=== PATIENT | male | born 1975 | race Caucasian/White ===

== ENCOUNTER 2017-07-21 22:20 | Emergency (ER) | payer OTHER ==
[~2017-07-21] VITALS: Ht 177.8 cm; Wt 127.0 kg
[~2017-07-21 22:20] MED LIST: ALLOPURINOL 30300 M1 PO; AMBEREN; NORCO 5-325 TA1 EACH PO
[2017-07-21] MEDS ORDERED: ZOCOR20 MG (22:34)
[2017-07-21] MEDS ORDERED: OMEPRAZOLE20 M2 (22:34)
[2017-07-21 22:45] LABS: URINE BILIRUBIN NEGATIVE (Negative); URINE BLOOD NEGATIVE (Negative); URINE CLARITY CLEAR; URINE COLOR YELLOW; URINE GLUCOSE-RANDOM 1+ (Negative); URINE KETONES TRACE (Negative); URINE LEUKOCYTES-REFLEX NEGATIVE (Negative); URINE NITRITE-REFLEX NEGATIVE (Negative); URINE PROTEIN TRACE (Negative); URINE SPECIFIC GRAVITY >= 1.030 (1.005-1.030); URINE UROBILINOGEN 0.2 E.U./dl (0.2-1.0)
[2017-07-21 22:46] LABS: ABSOLUTE EOSINOPHILS 0.1 thou/uL (0.0-0.7); ABSOLUTE LYMPHOCYTES 2.7 thou/uL (0.8-5.3); ABSOLUTE MONOCYTES 0.4 thou/uL (0.0-1.2); BASOPHILS 0.5 %; EOSINOPHILS 1.6 %; HEMATOCRIT 47.6 % (42.0-52.0); HEMOGLOBIN 16.2 gm/dL (14.0-18.0); LYMPHOCYTES 43.1 %; MCH 30.7 pg (26.0-34.0); MCHC 34.1 g/dL (28.0-37.0); MCV 90.1 fL (80.0-100.0); MPV 8.3 fl. (7.2-11.1); NUCLEATED RBCS 0 /100WBC; PLATELET COUNT* 212 thou/uL (150-400); POLYS 48.8 %; RBC 5.28 mil/uL (4.50-6.00); RDW-CV 13.1 % (10.5-14.5); WBC 6.2 thou/uL (4.0-11.0)
[2017-07-21 22:53] LABS: CALCIUM 9.2 mg/dL (8.5-10.1); CREATININE 1.2 mg/dL (0.6-1.3); POTASSIUM 3.7 mmol/L (3.5-5.1)
[2017-07-21 22:58] LABS: ALBUMIN 3.8 g/dL (3.4-5.0); TOTAL BILIRUBIN 0.7 mg/dL (<0.1-1.0); TOTAL PROTEIN 7.3 g/dL (6.4-8.2)
[2017-07-22] MEDS ORDERED: PRILOSEC 20 MG20 MG PO (00:43)
[2017-07-22] MEDS ORDERED: BENTYL 20 MG TA20 M1 PO (00:43)
[2017-07-22 00:53] VITALS: BP 157/96
== END 2017-07-22 00:53 | disposition home or self-care (01) ==
LOC: M.ERS 22:20
PROVIDERS: Nurse Practitioner
DX: K52.9 Noninfective gastroenteritis and colitis, unspecified (principal); I10 Essential (primary) hypertension; M10.9 Gout, unspecified; F17.210 Nicotine dependence, cigarettes, uncomplicated

== ENCOUNTER → 2019-01-15 | Outpatient (CLI) | payer OTHER ==
[~2019-01-15] MED LIST changes: +BENTYL 20 MG TA20 M1 PO; +OMEPRAZOLE20 M2; +PRILOSEC 20 MG20 MG PO; +ZOCOR20 MG
== END ==
LOC: M.ULTRA 14:49
DX: N50.811 Right testicular pain (principal); Z79.899 Other long term (current) drug therapy

== ENCOUNTER → 2020-10-08 | Outpatient (CLI) | payer OTHER | LOC: M.CT 13:40 | PROVIDERS: ATTEND Family Medicine | DX: N50.811 Right testicular pain (principal); I10 Essential (primary) hypertension; R82.998 Other abnormal findings in urine; M54.5 Low back pain ==